=== PATIENT | male | born 1970 | race Caucasian/White ===

== ENCOUNTER 2017-10-04 06:32 | Outpatient (CLI) | payer MEDICARE ==
[~2017-10-04] VITALS: Ht 190.5 cm; Wt 115.9 kg
--- NOTE | ~2017-10-04 | HEMODYNAMI ---
PATIENT:CHIN SANCHEZ MEDICAL RECORD: [id number] : 74 LOCATION:[facility] ADMISSION DATE: 10/04/17 Generatedon:10/04/20179:07 Patient name: CHIN SANCHEZ Patient #: [id number] SSN: DO B: 1970 Date of study: 10/04/2017 Page: Of Hemodynamic Procedure Report Patient Data Patient Demographics Procedure consent was obtained First Name: CHIN Gender: Male Last Name: DANIEL : 1970 Middle Initial: T Age: 46 year(s) Patient #: [id number] Race: Unknown Additional ID: [id number] Contact details [address]: [address] [place] [address] State: [place] City: [place] Zip code: [address] Admission Admission Data Admission Date: 10/04/2017 Admission Time: 6:32 Weight (lbs.): 255 Weight (kg.): 115.67 Procedure Procedure Types Cath Procedure Peripheral Cath Diagnostic Procedure Cath Peripheral Venography Extremity Left Lower Ext. Venagram Procedure Description Procedure Date Procedure Date: 10/04/2017 Procedure Start Time: 8:58 Procedure Staff Name Function Chin Pringle MD Performing Physician Alyson Underwood RT Distillery Worker General Alyson Underwood RT Monitor Marlon Chávez RT Scrub Uzma Lomeli RN Nurse Willy Steen Nurse Procedure Data Cath Procedure Fluoroscopy Diagnostic fluoroscopy Total fluoroscopy Time: 1.6 time: 1.6 min min Diagnostic fluoroscopy Total fluoroscopy dose: 263 dose: 263 mGy mGy Contrast Material Contrast Material Type Amount (ml) Isovue 300 120 Procedure Medications Medication Administration Route Dosage Oxygen NC 3 l/min Heparin Flush Bag added to field 1 bags (1000units/500ml NS) Lidocaine 1% added to field 20 Hemodynamics Rest Heart Rate: 97 (bpm) Snapshots Pre Cath Intra NCS Post Cath Vital Signs Time Heart Resp SPO2 etCO2 NIBP (mmHg) Rhythm Pain Sedation Rate (ipm) (%) (mmHg) Status Level (bpm) 8:52:28 85 11 96 0 146/100(122) NSR 0 (11) 10(A) , No pain 8:56:46 91 10 98 0 147/100(127) NSR 0 (11) 10(A) , No pain 9:01:04 87 11 100 0 142/99(118) NSR 0 (11) 10(A) , No pain 9:05:20 85 7 100 0 150/99(124) NSR 0 (11) 10(A) , No pain Medications Time Medication Route Dose Verified Delivered Reason Notes Effec tiveness by by 8:43:19 Oxygen NC 3 Uzma Uzma used for l/min Armani Armani property controller RN 8:43:36 Heparin Flush added 1 Uzma Chin used for Bag to bags Armani Pringle procedure (1000units/500ml field PEGGY DARLING NS) 8:43:53 Lidocaine 1% added 20ml Uzma Chin for local to vial Armani Pringle anesthetic field PEGGY DARLING Procedure Log Time Note 8:40:05 Patient Weight : 255 lbs 8:40:43 Time tracking: Regular hours 8:40:56 Plan of Care:Hemodynamics will remain stable., Cardiac rhythm will remain stable., Comfort level will be maintained., Respiratory function will remain adequate., Patient/ family verbilizes understanding of procedure., Procedure tolerated without complication., Recovers from procedure without complications.. 8:41:05 Patient received from Outpatients to IR Alert and oriented. Tansferred to table in Supine position. 8:41:10 Signed procedure consent form obtained from patient. 8:41:16 H&P Date Dictated: 10/04/2017 Within 30 days and on chart.. 8:41:20 Pre-procedure instructions explained to patient. 8:41:20 Pre-op teaching completed and patient verbalized understanding. 8:41:22 Family in waiting room. 8:41:26 Patient NPO since Midnight. 8:41:30 Is the patient allergic to Iodine/contrast media? No. 8:41:33 Is patient on blood thinner?Yes 8:41:38 ACC The patient was administered the following blood thiners within the last 24 hours: Coumadin 8:41:44 Patient diabetic? Yes. 8:41:48 If diabetic: On Metformin? Yes 8:42:00 If on Metformin: Last Dose? 10/03/2017 8:42:02 8:42:05 ----Pre-sedation anethsthesia assessment.---- 8:42:08 Previous problem with sedation/anesthesia? No ? 8:42:11 Snore? Yes 8:42:13 Sleep apnea? No 8:42:15 Deviated septum? No 8:42:17 Opens mouth fully? Yes 8:42:19 Sticks out tongue? Yes 8:42:22 Airway obstruction? No ? 8:42:27 Dentures? No ? 8:42:30 8:42:40 Left groin area was prepped with chlora-prep and draped in sterile fashion 8:43:19 Oxygen 3 l/min NC was administered by Uzma Lomeli RN; used for procedure; 8:43:36 Heparin Flush Bag (1000units/500ml NS) 1 bags added to field was administered by Chin Pringle MD; used for procedure; 8:43:53 Lidocaine 1% 20ml vial added to field was administered by Chin Pringle MD; for local anesthetic; 8:43:55 8:44:00 Use device set IR Diagnostic 8:44:01 Sterile Angiographic Pack opened to sterile field. 8:44:03 Bag Decanter () opened to sterile field. 8:51:07 ECG and BP/O2 sat monitors applied to patient. 8:51:08 Vital chart was started 8:51:09 Baseline sample Acquired. 8:51:25 Full Disclosure recording started 8:51:26 8:53:27 DOC .035 wire ([id number]) opened to sterile field. 8:53:29 DILATOR, VESSEL 4/20 opened to sterile field. 8:53:31 PERCUTANEOUS ENTRY 19GA needle opened to sterile field. 8:55:53 Physician arrived 8:57:54 --------ALL STOP TIME OUT------ 8:57:54 Final Timeout: patient, procedure, and site verified with staff and physician. All members of the team are in agreement. 8:58:16 Procedure started. 8:58:23 Local anesthetic to left femoral vein with Lidocaine 1% by Chin Pringle MD.INITIAL ACCESS ONLY 9:03:35 Procedure ended.(Physican Out) 9:05:29 Fluoroscopy time 01.60 minutes. 9:05:34 Fluoroscopy dose: 263 mGy 9:05:34 Flurop Dose total: 263 9:05:50 Contrast amount:Isovue 300 120ml. 9:05:53 Procedure and supply charges have been captured, reviewed, submitted and are correct. 9:07:20 Report given to Outpatients. 9:07:44 Vital chart was stopped Device Usage Item Name Manufacture Quantity Catalog Hospital Part Current Minimal Lot# / Number Charge Number Stock Stock Serial# Code Sterile Cardinal 1 [id number] 5 Angiographic Health Pack Bag Decanter [employer] 1 [id number] 5 () [employer] DOC .035 [employer] 1 [id number] 5 [id number] wire ([id number]) DILATOR, [employer] 1 [id number] 33700 [id number] 5 [id number] VESSEL 4/20 PERCUTANEOUS [employer] 1 [id number] 5 [id number] ENTRY 19GA needle Signature Audit Victoria Stage Time Signature Unsigned Intra-Procedure 10/04/2017 Alyson Underwood 9:07:41 AM RT(R) Signatures Monitor : Alyson Underwood RT Signature : Date : Time : [facility] [address] [facility] [address]
[2017-10-04] MEDS ORDERED: BUPROPION HCL200 M1 PO (07:04)
[2017-10-04] MEDS ORDERED: TRILEPTAL300 MG PO (07:05)
[2017-10-04] MEDS ORDERED: REXULTI1 MG PO (07:05)
[2017-10-04] MEDS ORDERED: CLONAZEPAM2 MG/TAB PO (07:06)
[2017-10-04] MEDS ORDERED: GLUCOPHAGE1000 MG PO (07:06)
[2017-10-04] MEDS ORDERED: COUMADIN1 MG PO (07:07)
[2017-10-04 07:13] VITALS: BP 137/79; Ht 190.5 cm; Wt 115.9 kg
[2017-10-04 08:15] LABS: BASOPHILS 0.3 % (0-2); HEMATOCRIT 41.4 % (42.0-54.0); HEMOGLOBIN 14.1 g/dL (13.5-17.5); IMMATURE GRANULOCYTES 0.3 % (0-5); LYMPHOCYTES 17.7 % (15-50); MCH 29.4 pg (26.0-34.0); MCHC 34.1 g/dL (31.0-37.0); MCV 86.3 fL (80.0-100.0); MEAN PLATELET VOLUME 9.7 fL (7.4-10.4); MONOCYTES 6.4 % (2-11); NEUTROPHILS 72.3 % (40-80); PLATELET COUNT 141 10x3/uL (130-400); RDW 12.8 % (11.5-14.5); WBC 6.7 10x3/uL (4.8-10.8)
[2017-10-04 08:17] LABS: INR 1.1 (0.85-1.17); PROTIME 13.8 SECONDS (11.6-15.0)
[2017-10-04 08:18] LABS: APTT 30.1 SECONDS (22.8-39.4); CALC OSMOLALITY 280 mosm/kg (275-300); CARBON DIOXIDE 26.7 mmol/L (21.0-32.0); CHLORIDE - SERUM 100 mmol/L (98-107); CREATININE - SERUM 0.8 mg/dL (0.6-1.3); GLUCOSE 234 mg/dL (74-106); POTASSIUM - SERUM 4.6 mmol/L (3.5-5.1); SODIUM 137 mmol/L (136-145); UREA NITROGEN 11 mg/dL (7-18); eGFR NON AFRICAN AMERICAN > 90 mL/min (90-120)
== END 2017-10-04 11:25 | disposition home or self-care (01) ==
LOC: D.OPS 06:32 → D.RAD 08:00 → D.OPS 11:25
PROVIDERS: Specialist
DX: Z86.718 Personal history of other venous thrombosis and embolism (principal); I87.009 Postthrombotic syndrome without complications of unspecified extremity; I10 Essential (primary) hypertension; Z68.35 Body mass index [BMI] 35.0-35.9, adult; Z01.812 Encounter for preprocedural laboratory examination